=== PATIENT | male | born 1945 | race Caucasian/White ===

== ENCOUNTER → 2024-02-01 08:41 | Outpatient (REF) | payer OTHER, SELFPAY | LOC: RAD 08:41 | PROVIDERS: ATTENDING PHYSICIAN Specialist; FAMILY PHYSICIAN Family Medicine | DX: M54.16 Radiculopathy, lumbar region (principal) | CPT/HCPCS: 72110 ==

== ENCOUNTER → 2024-02-18 08:41 | Outpatient (REF) | payer OTHER, SELFPAY | LOC: MRI 3T 08:41 | PROVIDERS: ATTENDING PHYSICIAN Specialist; FAMILY PHYSICIAN Family Medicine | DX: M54.16 Radiculopathy, lumbar region (principal) | CPT/HCPCS: 72148 ==

== ENCOUNTER → 2024-08-01 14:25 | Outpatient (REF) | payer OTHER, SELFPAY | LOC: RCS 14:25 | PROVIDERS: ATTENDING PHYSICIAN Nuclear Medicine Nuclear Cardiology; FAMILY PHYSICIAN Family Medicine | DX: I25.10 Atherosclerotic heart disease of native coronary artery without angina pectoris (principal); I35.0 Nonrheumatic aortic (valve) stenosis; I25.2 Old myocardial infarction | CPT/HCPCS: 93306 ==

== ENCOUNTER 2024-09-12 09:09 | Emergency (ER) | payer OTHER, SELFPAY ==
[2024-09-12 09:11] VITALS: BP 152/85
--- NOTE | 2024-09-12 09:27 | ED.GENMED ---
History of Present Illness
General
Chief Complaint: Fall
Time Seen by Provider: 09/12/24 09:15
History of Present Illness
History of Present Illness:
Patient is a 79-year-old man with history of hypertension, hyperlipidemia presenting to the emergency room after fall. Patient fell yesterday landing on a tree root. He landed on his left ribs. He did not hit his head or lose consciousness. He
states that since yesterday pain has worsened and he has associated shortness of breath. He is not on a blood thinner. No abdominal pain. No bruising. He has taken his home oxycodone with some relief. He also notes that he received a small cut
to his left hand. No pain. No weakness.
Past History
Past History
ED Past Medical History: CAD, HTN, Hypercholesterolemia, NV and Other (Kidney stones with surgery, status post prostatectomy, status post knee replacement, status post spinal reconstructions x3, coronary disease status post stents x2)
ED Past Surgical History: Cardiac (Cardiac stenting) and Orthopedic
Social History
Tobacco: Former smoker
Alcohol: Occasional
Personal:
Living: with family
Family History
Family History: Early CAD and Other (Grandfather with coronary artery disease, cousin with a heart transplant)
Phy Exam
Physical Exam
Physical Exam:
GENERAL: no acute distress
HEENT: atraumatic, extraocular muscles intact
NECK: no midline tenderness, normal range of motion
BACK: no midline tenderness, no other obvious trauma
CHEST: Left lower anterior rib tenderness to palpation no flail segment, no subcutaneous emphysema, no other obvious trauma
LUNGS: clear to auscultation bilaterally
CARDIOVASCULAR: regular rate and rhythm
ABDOMEN: soft, non-tender, no masses, no other obvious trauma
PELVIS: stable, no obvious injury
EXTREMITIES: Left hand with redness over the dorsal ulnar aspect. No tenderness palpation. Full strength. Otherwise moving all extremities, distal pulses intact, no other obvious trauma
NEUROLOGIC: awake, alert x 3, no focal deficits
Course
Orders/Labs/Results
Orders:
Orders
09/12/24 09:14
Crisis Consult Urgent
Reason for Consult: depression
09/12/24 09:26
CT Chest W/o Iv Contrast Urgent
Comment:
Reason For Exam: left anterior lower rib tenderness
09/12/24 09:30
Lidocaine [Lidocaine 4% Patch] 1 patch TOPICAL DAILY
Apply Lidocaine patch(s) to:: left chest
Vital Signs
Initial and Last Documented VS:
Initial Vital Signs
Temp Pulse Resp BP Pulse Ox
98.0 F 78 18 152/85 98
09/12/24 09:11 09/12/24 09:11 09/12/24 09:11 09/12/24 09:11 09/12/24 09:11
Last Documented Vital Signs
Temp Pulse Resp BP Pulse Ox
98.0 F 78 18 152/85 98
09/12/24 09:11 09/12/24 09:11 09/12/24 09:11 09/12/24 09:11 09/12/24 09:11
MDM/Problems Addressed
Differential Diagnosis Includes:
Patient is a 79-year-old male presenting to the emergency department for pain after a fall. Vitals are notable for hypertension and exam does show tenderness palpation over the left lower anterior ribs. Concern for rib fracture versus contusion.
Less likely be pneumothorax patient does have clear and equal breath sounds and no crepitus. Given the redness over the hand considered fracture though full range of motion and no tenderness. I did offer x-ray however patient declined at this
time. Will proceed with CT scan of the chest to evaluate for any rib fractures. Will pain control.
*Critical Care Note
Total Time (30-74mins, 75-104mins- exclusive of procedures): Not Applicable
Update Note
Update Note:
CT scan of the chest per my interpretation with no obvious rib fracture or pneumothorax. Per the official read no acute findings. Patient advised on pain control as well as deep breathing exercises.
Patient also had a crisis consult placed from triage. Patient states that he has been depressed. No suicidal homicidal thoughts. He has no plan. Crisis did evaluate patient. He is clear for outpatient resources. Will discharge at this time.
ED Attending Note
-
Portions of this chart may have been created with voice recognition software.� Occasional wrong word or��sound alike� substitutions may have occurred due to the inherent limitations of voice recognition software.
Discharge Plan
Departure
Patient Disposition: Home (Routine Discharge)
Date of Disposition: 09/12/24
Time of Disposition: 10:17
Patient with high blood pressure during this ER visit?: No
Discharge Problem:
Contusion of rib on right side, Depression
Instructions: Rib fracture or bruised rib - ED discharge instructions
Prescriptions:
No Action
aspirin 81 MG tablet,delayed release (DR/EC)
81 mg PO QPM
metoprolol tartrate 25 MG tablet
12.5 mg PO BID
atorvastatin [Lipitor] 80 mg Tablet
80 mg PO HS
oxycodone-acetaminophen 5-325 mg Tablet
0.5 tab PO QID
docusate sodium [Colace] 100 mg Capsule
100 mg PO DAILY
gabapentin 300 mg Capsule
300 mg PO QID
duloxetine [Cymbalta] 60 mg Capsule,Delayed Release(Dr/Ec)
60 mg PO NOON
Medical Marijuana
2 puff inhalation TIDPRN PRN (Reason: nerve pains)
pantoprazole [Protonix] 40 mg tablet,delayed release (DR/EC)
40 mg PO BID 14 Days Qty: 28 0RF
ondansetron 4 mg tablet,disintegrating
4 mg PO Q8H PRN (Reason: nausea and vomiting) 3 Days Qty: 9 0RF
Referrals:
Alexis Traylor MD [Family Provider] -
Activity Restrictions/Additional Instructions:
We discussed pain medications:
You may take Tylenol (also known as Acetaminophen) for pain.
You may take 1000mg Acetaminophen (two extra-strength tablets) per dose, which should be taken every 6-8 hours, or three times a day.
If you have normal strength Tylenol, you can take 650mg (two normal strength tablets) every 4-6 hours.
Do not take more than 3,000mg (3 grams) of Acetaminophen per day.
Never take more than as directed on the bottle.
You may also take Ibuprofen (also known as Motrin or Advil). If taking with Tylenol, alternate and take between dosing.
You may take 400-800mg of Ibuprofen per dose, which should be taken every 6-8 hours.
Do not take more than 3200mg (3.2 grams) of Ibuprofen per day.
You may also benefit from using a Lidocaine Patch (also known as 'Salon Pas'), which is an over the counter pain patch.
Place it just over the site of pain, avoiding areas of skin damage, as per instructions on the patch.
You may use Oxycodone for severe or breakthrough pain. This medication can cause constipation and drowsiness. Do not drive or make important decisions while taking it. Consider using a laxative such as Senna while taking this medication.
Please see your primary care doctor soon to be reevaluated and to make sure that you are improving. We have included information about establishing care with a doctor if you do not have one.
We talked about your evaluation, diagnosis, and treatment in the Emergency Department today. You must see your primary doctor for recheck and followup care in order to evaluate your progress or any changes. Have your doctor recheck the test
results/information from the ED visit. As discussed, RETURN to the ED if you develop worsening/changing symptoms or have no improvement in symptoms after the treatments provided.
You are also evaluated by our crisis team. They did give you resources for outpatient treatment. If you have any changes in your thoughts or thoughts of wanting to hurt yourself or suicidal thoughts please immediately come to the emergency
department. We would be more than happy to help
Interventions
Interventions:
*Risk Screen - Suicide Last Done: 09/12/24 09:11
*General Assessment Last Done: 09/12/24 09:11
*Neglect/Abuse Screening Last Done: 09/12/24 09:11
*ED COVID-19 Vaccine History Last Done: 09/12/24 09:11
Discharge Date and Time
Print Language: MONEGASQUE
[2024-09-12] MEDS: LIDOCAINE 4% PATCH 1 PATCH TOPICAL (10:50)
== END 2024-09-12 11:05 | disposition home or self-care (01) ==
LOC: EMR 09:09
PROVIDERS: EMERGENCY PHYSICIAN Student in an Organized Health Care Education/Training Program; FAMILY PHYSICIAN Family Medicine
DX: S20.211A Contusion of right front wall of thorax, initial encounter (principal); W19.XXXA Unspecified fall, initial encounter; F32.A Depression, unspecified; I10 Essential (primary) hypertension; E78.00 Pure hypercholesterolemia, unspecified; I25.10 Atherosclerotic heart disease of native coronary artery without angina pectoris; Z95.5 Presence of coronary angioplasty implant and graft
CPT/HCPCS: 99284; 71250

== ENCOUNTER → 2024-10-10 12:04 | Outpatient (REF) | payer OTHER, SELFPAY | LOC: RAD 12:04 | PROVIDERS: ATTENDING PHYSICIAN Specialist; FAMILY PHYSICIAN Family Medicine | DX: M54.16 Radiculopathy, lumbar region (principal) | CPT/HCPCS: 72110 ==

== ENCOUNTER → 2025-02-07 10:48 | Outpatient (REF) | payer OTHER, SELFPAY | LOC: RCS 10:48 | PROVIDERS: ATTENDING PHYSICIAN Nuclear Medicine Nuclear Cardiology; FAMILY PHYSICIAN Family Medicine | DX: I25.2 Old myocardial infarction (principal); I35.0 Nonrheumatic aortic (valve) stenosis | CPT/HCPCS: 93306 ==